=== PATIENT | male | born 1995 | race Caucasian/White ===

== ENCOUNTER 2016-12-13 03:55 | Emergency (ER) | payer OTHER ==
[~2016-12-13] VITALS: Ht 172.7 cm; Wt 61.2 kg
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
[2016-12-13] MEDS ORDERED: LIDOCAINE 2% 20 ML (XYLOCAINE) VIAL ONE (04:16)
[2016-12-13] MEDS: TETANUS,DIPTH,PERTUSS P/F (BOOSTRIX) 0.5 ML VIAL IM ONE (04:18)
[2016-12-13 04:40] VITALS: BP 138/86
[2016-12-13] MEDS ORDERED: SULF1TAB35 PO (04:47)
[2016-12-13] MEDS: RX-TRIMETH/SULFA. 160-800 MG (BACTRIM DS) TAB PPK#2 PO STA (06:46)
--- NOTE | 2016-12-13 07:40 | Diagnostic Imaging Report ---
INDICATION: Finger trauma, hand pain. COMPARISON: None. 3 views of the right hand demonstrate no fracture or dislocation. Articular surfaces are normal. There is no foreign body. IMPRESSION: Negative right hand. Dictated by: Dictated on workstation # [id number]
== END 2016-12-13 04:40 | disposition home or self-care (01) ==
LOC: EDUNIT# 03:55 → ER 03:59
DX: S61.212A Laceration without foreign body of right middle finger without damage to nail, initial encounter (principal); Z23 Encounter for immunization; W22.09XA Striking against other stationary object, initial encounter
CPT/HCPCS: 73140; 90715; 99284

== ENCOUNTER → 2017-05-28 | Outpatient (CLI) | payer OTHER ==
[~2017-05-28] MED LIST: SULF1TAB35 PO
== END ==
LOC: LAB 12:39
PROVIDERS: ATTEND Family Medicine
DX: R68.89 Other general symptoms and signs (principal)
CPT/HCPCS: 86902

== ENCOUNTER → 2017-11-03 | Outpatient (CLI) | payer OTHER ==
--- NOTE | 2017-11-03 15:33 | Diagnostic Imaging Report ---
INDICATION: Hemoptysis. PA and lateral views of the chest were obtained. FINDINGS: The heart size, mediastinal configuration, and pulmonary vascularity are within normal limits. There is no pleural effusion, pneumothorax, or pneumonia. The osseous structures are unremarkable. IMPRESSION: No acute cardiopulmonary abnormality. Dictated by: Dictated on workstation # [id number]
[2017-11-03 15:36] LABS: HEMOGLOBIN 16.2 G/DL (13.3-17.7); MEAN PLATELET VOLUME 9.7 FL (7.4-10.4); RED BLOOD COUNT 4.95 10^6/uL (4.35-5.85); WHITE BLOOD COUNT 7.8 10^3/uL (4.3-11.0)
[2017-11-03 16:03] LABS: ALANINE AMINOTRANSFERASE 16 U/L (0-55); ALBUMIN 4.4 GM/DL (3.2-4.5); ALKALINE PHOSPHATASE 51 U/L (40-136); BILIRUBIN,TOTAL 0.4 MG/DL (0.1-1.0); BUN/CREATININE RATIO 10; CALCIUM 9.5 MG/DL (8.5-10.1); CARBON DIOXIDE 30 MMOL/L (21-32); CHLORIDE 103 MMOL/L (98-107); CREATININE SERUM 0.86 MG/DL (0.60-1.30); GFR ESTIMATED > 60; GLUCOSE 82 MG/DL (70-105); POTASSIUM 3.7 MMOL/L (3.6-5.0); SODIUM 141 MMOL/L (135-145); TOTAL PROTEIN 7.1 GM/DL (6.4-8.2)
== END ==
LOC: RAD 15:16
PROVIDERS: ATTEND Physician Assistant
DX: R04.2 Hemoptysis (principal)
CPT/HCPCS: 36415; 71046; 80053; 85027; 86141

== ENCOUNTER → 2017-11-20 | Outpatient (CLI) | payer OTHER ==
[~2017-11-20] MED LIST changes: +RECEIVED CONTRAST (Hold Metformin) IV SCH
[2017-11-20 15:44] LABS: HEMOGLOBIN 15.5 G/DL (13.3-17.7); MEAN PLATELET VOLUME 9.8 FL (7.4-10.4); RED BLOOD COUNT 4.9 10^6/uL (4.35-5.85); RED CELL DISTRIBUTION WIDTH 12.2 % (10.0-14.5); WHITE BLOOD COUNT 6.4 10^3/uL (4.3-11.0)
[2017-11-20] MEDS: NS 250 ML (IVPB) BAG IV ONE (15:44)
[2017-11-20] MEDS: CATHETER FLUSH 10 ML SYR IV PRN (15:44)
[2017-11-20] MEDS: IOHEXOL 350 MG/ML 100 ML (OMNIPAQUE 350) VIAL IV ONE (15:44)
[2017-11-20 16:01] LABS: ALANINE AMINOTRANSFERASE 15 U/L (0-55); ALBUMIN 4.8 GM/DL (3.2-4.5); ALKALINE PHOSPHATASE 49 U/L (40-136); BUN/CREATININE RATIO 11; CALCIUM 9.7 MG/DL (8.5-10.1); CARBON DIOXIDE 26 MMOL/L (21-32); CHLORIDE 104 MMOL/L (98-107); CREATININE SERUM 0.96 MG/DL (0.60-1.30); GFR ESTIMATED > 60; GLUCOSE 76 MG/DL (70-105); POTASSIUM 3.8 MMOL/L (3.6-5.0); SODIUM 140 MMOL/L (135-145); TOTAL PROTEIN 7.4 GM/DL (6.4-8.2)
--- NOTE | 2017-11-20 16:20 | Diagnostic Imaging Report ---
PROCEDURE: CT chest with contrast only. TECHNIQUE: Multiple contiguous axial images were obtained through the chest after administration of intravenous contrast. INDICATION: Coughing up black sputum for a while. COMPARISON: None FINDINGS: There is no significant mediastinal, axillary and/or hilar lymphadenopathy. A few bilateral axillary lymph nodes are present. The heart size is unremarkable. Thoracic aorta normal in contour. The lung woods are clear of infiltrate. No significant pleural effusion. The visualized portions of the upper abdomen are unremarkable. The visualized osseous structures demonstrate no acute findings. IMPRESSION: Essentially unremarkable appearing CT of the chest. Dictated by: Dictated on workstation # [id number]
[2017-11-24 06:53] LABS: HEPATITIS C ANTIBODY C Non-Reactive (Non-Reactive)
== END ==
LOC: RAD 15:27
PROVIDERS: ATTEND Physician Assistant
DX: R09.3 Abnormal sputum (principal); J40 Bronchitis, not specified as acute or chronic; Z86.59 Personal history of other mental and behavioral disorders
CPT/HCPCS: 36415; 71260; 80053; 80074; 85027; 86703

== ENCOUNTER 2017-12-03 11:30 | Outpatient (CLI) | payer OTHER ==
[~2017-12-03] VITALS: Ht 172.7 cm; Wt 61.2 kg
[~2017-12-03 11:30] MED LIST changes: -RECEIVED CONTRAST (Hold Metformin) IV SCH
== END 2017-12-03 11:49 | disposition home or self-care (01) ==
LOC: PREOP 11:30
PROVIDERS: ATTEND Internal Medicine Critical Care Medicine
DX: Z01.818 Encounter for other preprocedural examination (principal)

== ENCOUNTER 2017-12-04 06:54 | Day surgery (SDC) | payer OTHER ==
[~2017-12-04] VITALS: Ht 172.7 cm; Wt 61.2 kg
[2017-12-04] MEDS ORDERED: LIDOCAINE PF 1% 5 ML SYRINGE (ANLIKER/BAILEY ONLY) INJ ONE (06:55)
[2017-12-04] MEDS ORDERED: LIDOCAINE JELLY 2% (XYLOCAINE) 30 ML TUBE TOP ONE (06:55)
[2017-12-04] MEDS ORDERED: LIDOCAINE PF 2% 5 ML (XYLOCAINE) VIAL INJ ONE (06:55)
[2017-12-04 07:05] VITALS: BP 126/84
[2017-12-04] MEDS ORDERED: NS IV 500 ML 500 ML ONE (07:06)
[2017-12-04] MEDS ORDERED: NS IV 500 ML 500 ML IV PRN (07:23)
[2017-12-04] MEDS ORDERED: fentaNYL INJECTION 100 MCG/2 ML AMP IVP ONE (07:30)
[2017-12-04] MEDS ORDERED: fentaNYL INJECTION 100 MCG/2 ML AMP ONE ×2 (07:36→07:37)
[2017-12-04] MEDS ORDERED: MIDAZOLAM 2 MG/2 ML (VERSED) VIAL ONE ×3 (07:36)
[2017-12-04] MEDS: MIDAZOLAM 2 MG/2 ML (VERSED) VIAL IVP ONE (08:01)
--- NOTE | 2017-12-04 08:39 | Pre-Op Note & Conscious Sedat ---
Pre-Operative Progress Note H&P Reviewed The H&P was reviewed, patient examined and no changes noted. Date H&P Reviewed: Dec 04, 2017 Time H&P Reviewed: 08:39 Conscious Sedation Pre-Proced Time Reviewed: 08:38 ASA Class: 2 Airway Mallampati Classification: ([place] appropriate class) I. II. III, IV Lungs Heart ASA score ASA 1: a normal healthy patient ASA 2: a patient with a mild systemic disease (mid diabetes, controlled hypertension, obesity ASA 3: a patient with a severe systemic disease that limits activity (angina , COPD, prior Myocardial infarction) ASA 4: a patient with an incapacitating disease that is a constant threat to life (CHF, renal failure) ASA 5: a moribund patient not expected to survive 24 hrs. (ruptured aneurysm) ASA 6: a declared brain patient whose organs are being harvested. For emergent operations, add the letter E after the classification Grade 1 Sedation Plan: Analgesia, Amnesia, Plan communicated to team members, Discussed options with patient/fam, Discussed risks with patient/fam Note The patient is an appropriate candidate to undergo the planned procedure, sedation, and anesthesia. The patient immediately re-assessed prior to indication. KHRIS ARBOLEDA DO Dec 04, 2017 08:39
--- NOTE | 2017-12-04 08:39 | Progress Note-Pre Operative ---
Pre-Operative Progress Note H&P Reviewed The H&P was reviewed, patient examined and no changes noted. Time Seen by Provider: 08:38 Date H&P Reviewed: Dec 04, 2017 Time H&P Reviewed: 08:38 Pre-Operative Diagnosis: cough KHRIS ARBOLEDA DO Dec 04, 2017 08:39
--- NOTE | 2017-12-04 08:42 | Pulmonary Procedures ---
Pulmonary Procedures Date of Procedure Date of Service: Dec 04, 2017 Bronch Bronchoscopy with Fluoroscopy RML bronchoalveolar lavage (BAL), transbronchial washes and, transbronchial brushes. Preop DX cough Postop DX: same Complications: none After informed consent obtained and formal time out pt was sedated using Fentanyl and Versed. Bronchoscope was advanced through the nare and vocal cords. 1% lidocaine was used to anesthetize vocal cords, epiglottis, mariah, and left/right main stem bronchus. An anatomical tour was undertaken down to the segmental bronchi bilaterally. No endobronchial lesions noted. Using Fluoroscopy RML bronchoalveolar lavage (BAL), transbronchial washes and, transbronchial brushes. were obtained. Pt tolerated procedure well. No complications noted. Stat CXR is pending. KHRIS ARBOLEDA DO Dec 04, 2017 08:42
[2017-12-04 08:55] VITALS: BP 121/78
--- NOTE | 2017-12-04 09:23 | Diagnostic Imaging Report ---
INDICATION: Status post bronchoscopy. TIME OF EXAMINATION: 08:40 a.m. COMPARISON: Correlation is made with prior study from 11/03/2017. FINDINGS: The heart size is normal. There is some consolidation in the right lower lobe. No pneumothorax is seen status post bronchoscopy. No effusion is identified. IMPRESSION: Right lower lobe pneumonia. No pneumothorax is seen. Dictated by: Dictated on workstation # [id number]
[2017-12-04 09:30] VITALS: BP 133/81
--- NOTE | 2017-12-04 11:36 | Diagnostic Imaging Report ---
Indication: Fluoroscopy during bronchoscopy. Fluoroscopy was provided for Dr. Keller during bronchoscopy. 18 seconds of fluoroscopy time was utilized. Impression: Fluoroscopy during bronchoscopy. Dictated by: Dictated on workstation # [id number]
[2017-12-04 12:51] VITALS: BP 133/81
[2017-12-04 12:53] VITALS: BP 133/81
== END 2017-12-04 09:45 | disposition home or self-care (01) ==
LOC: ENDO 06:54
PROVIDERS: ATTEND Internal Medicine Critical Care Medicine
DX: R05 Cough (principal); R09.3 Abnormal sputum; J30.9 Allergic rhinitis, unspecified; Z72.0 Tobacco use
CPT/HCPCS: 71045; 87070; 87101; 87116; 87205; 94640

== ENCOUNTER 2018-03-21 15:29 | Emergency (ER) | payer OTHER ==
[~2018-03-21] VITALS: Ht 157.5 cm; Wt 59.0 kg
--- NOTE | 2018-03-21 15:30 | NUR ---
Pt. is A&O x 3. Denies loss of consciousness, pupils are PEARRL. Denies neck pain upon palpation. Denies chest pain or shortness of breath, lung sounds are clear and equal bilaterally, no deformities or crepitus noted. Complains of left lower quadrant abdominal pain as well as right upper quadrant abdominal pain. Pt. advises pain in the left and right buttocks region as well as pelvis and groin upon palpation. Pelvic binder applied at 1540 He complains of left leg pain. Abraision to the right upper extremity no obivious bleeding noted. Pt. is able to move all upper and lower extremitites with normal sensation of pain to all extremities. He advises back pain in the lumbar region.
[2018-03-21] MEDS ORDERED: fentaNYL INJECTION 100 MCG/2 ML AMP ONE ×2 (15:35→16:24)
[2018-03-21] MEDS ORDERED: ONDANSETRON 4 MG/2 ML (SDV) Z0FRAN ONE (16:24)
--- NOTE | 2018-03-21 16:24 | NUR ---
[facility] notified of possible pending transfer.
--- NOTE | 2018-03-21 16:28 | Diagnostic Imaging Report ---
INDICATION: Trauma, chest pain. FINDINGS: A single view of the chest shows normal heart size and vascularity. The lungs are clear. There is no effusion or pneumothorax. There is no acute bony abnormality. IMPRESSION: No acute abnormality is seen. Dictated by: Dictated on workstation # [id number]
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
[2018-03-21] MEDS ORDERED: ONDANSETRON 4 MG/2 ML (SDV) Z0FRAN IVP ONE (16:30)
[2018-03-21] MEDS ORDERED: fentaNYL INJECTION 100 MCG/2 ML AMP IVP PRN (16:30)
--- NOTE | 2018-03-21 16:35 | Diagnostic Imaging Report ---
EXAMINATION: Pelvis, single view. COMPARISON: November 02, 2011. FINDINGS: The patient is rotated. There is a mildly displaced fracture of the left anterior acetabulum. The hips are not obviously dislocated. The sacroiliac joints are grossly unremarkable in alignment. There is no abnormal widening of the pubic symphysis. There is a comminuted displaced fracture of the left inferior pubic ramus. There is question of a right sacral fracture. IMPRESSION: 1. Mildly displaced fracture involving the left anterior acetabulum. 2. Comminuted displaced fracture of the left inferior pubic ramus. 3. Question of right sacral fracture. 4. Dedicated CT is recommended for further assessment of pelvic fractures. Dictated by: Dictated on workstation # [id number]
[2018-03-21 16:43] LABS: HEMOGLOBIN 15.7 G/DL (13.3-17.7); MEAN PLATELET VOLUME 10.6 FL (7.4-10.4); RED BLOOD COUNT 4.98 10^6/uL (4.35-5.85); WHITE BLOOD COUNT 6.2 10^3/uL (4.3-11.0)
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
[2018-03-21] MEDS: NS IV 1000 ML 1,000 ML IV SCH ×2 (16:58→16:59)
[2018-03-21 16:59] LABS: ALANINE AMINOTRANSFERASE 24 U/L (0-55); ALBUMIN 4.7 GM/DL (3.2-4.5); ALKALINE PHOSPHATASE 51 U/L (40-136); BILIRUBIN,DIRECT 0.3 MG/DL (0.0-0.3); BILIRUBIN,INDIRECT 0.4 MG/DL; BILIRUBIN,TOTAL 0.7 MG/DL (0.1-1.0); BUN/CREATININE RATIO 6; CALCIUM 9.3 MG/DL (8.5-10.1); CARBON DIOXIDE 23 MMOL/L (21-32); CHLORIDE 105 MMOL/L (98-107); CREATINE KINASE 165 U/L (30-200); CREATININE SERUM 1.08 MG/DL (0.60-1.30); GFR ESTIMATED > 60; GLUCOSE 122 MG/DL (70-105); MAGNESIUM 2.3 MG/DL (1.8-2.4); PHOSPHORUS 2.6 MG/DL (2.3-4.7); POTASSIUM 3.3 MMOL/L (3.6-5.0); SODIUM 142 MMOL/L (135-145); TOTAL PROTEIN 7.3 GM/DL (6.4-8.2)
[2018-03-21 17:00] LABS: FIBRIN DEGRADATION PRODUCTS 4.5 UG/ML (0.00-0.49); INR 1.1 (0.8-1.4); PROTHROMBIN TIME PATIENT 14.2 SEC (12.2-14.7)
--- NOTE | 2018-03-21 17:08 | NUR ---
[facility] notified of pending transfer, bed [id number]
--- NOTE | 2018-03-21 17:14 | NUR ---
Patient report called to Kenneth DENNIS at [facility].
[2018-03-21] MEDS ORDERED: fentaNYL INJECTION 100 MCG/2 ML AMP IVP STA (17:41)
[2018-03-21 18:00] VITALS: BP 122/82
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
== END 2018-03-21 18:00 ==
LOC: EDUNIT# 15:29 → ER 15:29
DX: S32.412A Displaced fracture of anterior wall of left acetabulum, initial encounter for closed fracture (principal); S32.502A Unspecified fracture of left pubis, initial encounter for closed fracture; S32.302A Unspecified fracture of left ilium, initial encounter for closed fracture; S32.10XA Unspecified fracture of sacrum, initial encounter for closed fracture; R07.9 Chest pain, unspecified; F12.10 Cannabis abuse, uncomplicated; R40.2142 Coma scale, eyes open, spontaneous, at arrival to emergency department; R40.2252 Coma scale, best verbal response, oriented, at arrival to emergency department; R40.2362 Coma scale, best motor response, obeys commands, at arrival to emergency department; F17.210 Nicotine dependence, cigarettes, uncomplicated; Z88.0 Allergy status to penicillin; V67.6XXA Passenger in heavy transport vehicle injured in collision with fixed or stationary object in traffic accident, initial encounter
CPT/HCPCS: 36415; 71045; 72170; 74177; 80048; 80076; 80320; 82550; 83735; 84100; 84484; 85027; 85379; 85384; 85610; 85730; 86850; 86900; 86901; 86920; 96361; 96374; 96375; 96376

== ENCOUNTER → 2018-11-30 | Outpatient (CLI) | payer OTHER ==
--- NOTE | 2018-11-30 17:20 | Diagnostic Imaging Report ---
INDICATION: Fall with right shoulder pain and injury. TIME OF EXAM: 5:01 PM FINDINGS: Three views of the right shoulder were obtained. Glenohumeral and acromioclavicular alignment are normal. No fracture or dislocation is seen. IMPRESSION: No acute bony abnormality is detected. Dictated by: Dictated on workstation # [id number]
--- NOTE | 2018-11-30 17:34 | Diagnostic Imaging Report ---
INDICATION: Fall with right hip pain. TIME OF EXAM: 5:06 p.m. FINDINGS: Two views of the right hip demonstrate normal femoroacetabular alignment. The joint spaces are well maintained. The femoral head and neck are intact. No fractures are seen. Right-sided rami are intact. There are postop changes with screws transfixing the right SI joint and sacrum. IMPRESSION: No acute bony abnormality is detected. Dictated by: Dictated on workstation # [id number]
== END ==
LOC: RAD 16:42
PROVIDERS: ATTEND Nurse Practitioner
DX: S49.91XA Unspecified injury of right shoulder and upper arm, initial encounter (principal); M25.551 Pain in right hip; W19.XXXA Unspecified fall, initial encounter; Y92.009 Unspecified place in unspecified non-institutional (private) residence as the place of occurrence of the external cause
CPT/HCPCS: 73030; 73502

== ENCOUNTER 2019-08-29 11:39 | Outpatient (RCR) | payer OTHER ==
[2019-08-29 16:38] LABS: BASOPHILS # (AUTO) 0.1 10^3/uL (0.0-0.1); BASOPHILS % (AUTO) 1 % (0-10); EOSINOPHILS # (AUTO) 0.2 10^3/uL (0.0-0.3); EOSINOPHILS % (AUTO) 3 % (0-10); HEMATOCRIT 46 % (40-54); LYMPHOCYTES # (AUTO) 2.2 X 10^3 (1.0-4.0); LYMPHOCYTES % (AUTO) 31 % (12-44); MEAN CORPUSCULAR HEMOGLOBIN 32 PG (25-34); MEAN CORPUSCULAR HGB CONC 35 G/DL (32-36); MEAN CORPUSCULAR VOLUME 91 FL (80-99); MEAN PLATELET VOLUME 9.7 FL (7.4-10.4); MONOCYTES # (AUTO) 0.7 X 10^3 (0.0-1.0); MONOCYTES % (AUTO) 10 % (0-12); NEUTROPHILS % (AUTO) 56 % (42-75); PLATELET COUNT 259 10^3/uL (130-400); WHITE BLOOD COUNT 7.2 10^3/uL (4.3-11.0)
[2019-08-29 16:39] LABS: BILIRUBIN,URINE NEGATIVE (NEGATIVE); CLARITY,URINE CLEAR; COLOR,URINE YELLOW; GLUCOSE, URINE (UA) NEGATIVE (NEGATIVE); KETONES,URINE NEGATIVE (NEGATIVE); LEUKOCYTE ESTERASE ,URINE NEGATIVE (NEGATIVE); NITRITE,URINE NEGATIVE (NEGATIVE); PH,URINE 6.5 (5-9); PROTEIN,URINE NEGATIVE (NEGATIVE)
[2019-08-29 16:51] LABS: ALBUMIN 4.5 GM/DL (3.2-4.5)
[2019-08-29 16:52] LABS: CHLORIDE 105 MMOL/L (98-107); POTASSIUM 3.3 MMOL/L (3.6-5.0); SODIUM 141 MMOL/L (135-145)
[2019-08-29 16:53] LABS: CALCIUM 9.3 MG/DL (8.5-10.1)
[2019-08-29 16:54] LABS: GLUCOSE 107 MG/DL (70-105); TOTAL PROTEIN 7.4 GM/DL (6.4-8.2)
[2019-08-29 16:55] LABS: CARBON DIOXIDE 25 MMOL/L (21-32)
[2019-08-29 16:56] LABS: BILIRUBIN,TOTAL 0.8 MG/DL (0.1-1.0)
[2019-08-29 16:57] LABS: ALKALINE PHOSPHATASE 57 U/L (40-136); CREATININE SERUM 0.99 MG/DL (0.60-1.30); GFR ESTIMATED > 60
[2019-08-29 16:59] LABS: BUN/CREATININE RATIO 9
[2019-08-29 17:00] LABS: ALANINE AMINOTRANSFERASE 13 U/L (0-55)
[2019-08-29 17:03] LABS: AMORPHOUS SEDIMENT,UR FEW AMOR URATES /LPF; BACTERIA,URINE NEGATIVE /HPF
== END 2019-11-27 | disposition home or self-care (01) ==
LOC: LAB 11:39 → EDSTATUS 08-30 09:50
PROVIDERS: ATTEND Physician Assistant
DX: R55 Syncope and collapse (principal); R11.0 Nausea; R53.83 Other fatigue; Z20.828 Contact with and (suspected) exposure to other viral communicable diseases
CPT/HCPCS: 80053; 81000; 85025; U0002; 36415; 87635

== ENCOUNTER 2019-11-22 08:14 | Outpatient (RCR) | payer OTHER ==
[2019-10-31 09:00] VITALS: BP 115/71
[2019-10-31 09:41] LABS: BASOPHILS # (AUTO) 0.1 10^3/uL (0.0-0.1); BASOPHILS % (AUTO) 1 % (0-10); EOSINOPHILS # (AUTO) 0.3 10^3/uL (0.0-0.3); EOSINOPHILS % (AUTO) 5 % (0-10); HEMATOCRIT 42 % (40-54); HEMOGLOBIN 14.4 G/DL (13.3-17.7); LYMPHOCYTES # (AUTO) 1.8 X 10^3 (1.0-4.0); LYMPHOCYTES % (AUTO) 35 % (12-44); MEAN CORPUSCULAR HEMOGLOBIN 32 PG (25-34); MEAN CORPUSCULAR HGB CONC 34 G/DL (32-36); MEAN CORPUSCULAR VOLUME 92 FL (80-99); MEAN PLATELET VOLUME 9.9 FL (7.4-10.4); MONOCYTES # (AUTO) 0.6 X 10^3 (0.0-1.0); MONOCYTES % (AUTO) 11 % (0-12); NEUTROPHILS # (AUTO) 2.4 X 10^3 (1.8-7.8); NEUTROPHILS % (AUTO) 47 % (42-75); PLATELET COUNT 222 10^3/uL (130-400); RED CELL DISTRIBUTION WIDTH 11.8 % (10.0-14.5); WHITE BLOOD COUNT 5.2 10^3/uL (4.3-11.0)
[2019-10-31 09:51] LABS: ALBUMIN 4.1 GM/DL (3.2-4.5); CHLORIDE 107 MMOL/L (98-107); POTASSIUM 3.8 MMOL/L (3.6-5.0); SODIUM 139 MMOL/L (135-145)
[2019-10-31 09:53] LABS: CALCIUM 8.6 MG/DL (8.5-10.1)
[2019-10-31 09:54] LABS: GLUCOSE 95 MG/DL (70-105); TOTAL PROTEIN 6.8 GM/DL (6.4-8.2)
[2019-10-31 09:55] LABS: CARBON DIOXIDE 23 MMOL/L (21-32)
[2019-10-31 09:56] LABS: BILIRUBIN,TOTAL 0.3 MG/DL (0.1-1.0)
[2019-10-31 09:57] LABS: ALKALINE PHOSPHATASE 56 U/L (40-136); CREATININE SERUM 0.81 MG/DL (0.60-1.30); GFR ESTIMATED > 60
[2019-10-31 09:59] LABS: BUN/CREATININE RATIO 11
[2019-10-31 10:00] LABS: ALANINE AMINOTRANSFERASE 15 U/L (0-55)
[2019-10-31 10:21] LABS: BAND NEUTROPHILS 6 %; BASOPHILS % (MANUAL) 0 %; EOSINOPHILS % (MANUAL) 3 %; LYMPHOCYTES % (MANUAL) 30 %; MONOCYTES % (MANUAL) 7 %; NEUTROPHILS % (MANUAL) 54 %; RBC MORPH NORMAL
[2019-11-07 08:30] VITALS: BP 115/66
[2019-11-07 09:30] LABS: BASOPHILS # (AUTO) 0.1 10^3/uL (0.0-0.1); BASOPHILS % (AUTO) 2 % (0-10); EOSINOPHILS # (AUTO) 0.3 10^3/uL (0.0-0.3); EOSINOPHILS % (AUTO) 5 % (0-10); HEMATOCRIT 42 % (40-54); HEMOGLOBIN 14.6 G/DL (13.3-17.7); LYMPHOCYTES # (AUTO) 2.1 X 10^3 (1.0-4.0); LYMPHOCYTES % (AUTO) 35 % (12-44); MEAN CORPUSCULAR HEMOGLOBIN 32 PG (25-34); MEAN CORPUSCULAR HGB CONC 35 G/DL (32-36); MEAN CORPUSCULAR VOLUME 93 FL (80-99); MONOCYTES # (AUTO) 0.5 X 10^3 (0.0-1.0); MONOCYTES % (AUTO) 9 % (0-12); NEUTROPHILS % (AUTO) 50 % (42-75); PLATELET COUNT 242 10^3/uL (130-400); RED CELL DISTRIBUTION WIDTH 11.7 % (10.0-14.5)
[2019-11-07 09:48] LABS: ALANINE AMINOTRANSFERASE 20 U/L (0-55); ALKALINE PHOSPHATASE 53 U/L (40-136); BILIRUBIN,TOTAL 0.3 MG/DL (0.1-1.0); BUN/CREATININE RATIO 10; CARBON DIOXIDE 28 MMOL/L (21-32); CHLORIDE 107 MMOL/L (98-107); CREATININE SERUM 0.88 MG/DL (0.60-1.30); GFR ESTIMATED > 60; GLUCOSE 97 MG/DL (70-105); POTASSIUM 3.7 MMOL/L (3.6-5.0); SODIUM 142 MMOL/L (135-145); TOTAL PROTEIN 6.4 GM/DL (6.4-8.2)
[2019-11-07 09:54] LABS: VANCOMYCIN,TROUGH 10.9 UG/ML (10.0-20.0)
[2019-11-14 08:58] VITALS: BP 108/71
[2019-11-14 09:07] LABS: BASOPHILS # (AUTO) 0.1 10^3/uL (0.0-0.1); BASOPHILS % (AUTO) 2 % (0-10); EOSINOPHILS # (AUTO) 0.2 10^3/uL (0.0-0.3); EOSINOPHILS % (AUTO) 6 % (0-10); HEMATOCRIT 43 % (40-54); HEMOGLOBIN 14.8 G/DL (13.3-17.7); LYMPHOCYTES % (AUTO) 46 % (12-44); MEAN CORPUSCULAR HEMOGLOBIN 32 PG (25-34); MEAN CORPUSCULAR HGB CONC 35 G/DL (32-36); MEAN CORPUSCULAR VOLUME 91 FL (80-99); MEAN PLATELET VOLUME 10.2 FL (7.4-10.4); MONOCYTES # (AUTO) 0.6 X 10^3 (0.0-1.0); MONOCYTES % (AUTO) 14 % (0-12); NEUTROPHILS # (AUTO) 1.4 X 10^3 (1.8-7.8); NEUTROPHILS % (AUTO) 33 % (42-75); PLATELET COUNT 229 10^3/uL (130-400); RED CELL DISTRIBUTION WIDTH 11.5 % (10.0-14.5); WHITE BLOOD COUNT 4.3 10^3/uL (4.3-11.0)
[2019-11-14 09:37] LABS: ALANINE AMINOTRANSFERASE 17 U/L (0-55); ALBUMIN 4.3 GM/DL (3.2-4.5); ALKALINE PHOSPHATASE 62 U/L (40-136); BILIRUBIN,TOTAL 0.4 MG/DL (0.1-1.0); BUN/CREATININE RATIO 14; CARBON DIOXIDE 24 MMOL/L (21-32); CHLORIDE 106 MMOL/L (98-107); CREATININE SERUM 0.83 MG/DL (0.60-1.30); GFR ESTIMATED > 60; GLUCOSE 99 MG/DL (70-105); POTASSIUM 3.9 MMOL/L (3.6-5.0); SODIUM 141 MMOL/L (135-145); VANCOMYCIN,TROUGH 14.5 UG/ML (10.0-20.0)
--- NOTE | 2019-11-14 10:15 | NUR ---
LAB RESULTS FAXED TO [facility].
[2019-11-21 08:30] VITALS: BP 113/71
[2019-11-21 09:00] LABS: BASOPHILS # (AUTO) 0.1 10^3/uL (0.0-0.1); BASOPHILS % (AUTO) 2 % (0-10); EOSINOPHILS # (AUTO) 0.3 10^3/uL (0.0-0.3); EOSINOPHILS % (AUTO) 7 % (0-10); HEMATOCRIT 43 % (40-54); HEMOGLOBIN 15.1 G/DL (13.3-17.7); LYMPHOCYTES % (AUTO) 49 % (12-44); MEAN CORPUSCULAR HEMOGLOBIN 32 PG (25-34); MEAN CORPUSCULAR HGB CONC 35 G/DL (32-36); MEAN CORPUSCULAR VOLUME 91 FL (80-99); MEAN PLATELET VOLUME 9.6 FL (7.4-10.4); MONOCYTES # (AUTO) 0.7 X 10^3 (0.0-1.0); MONOCYTES % (AUTO) 16 % (0-12); NEUTROPHILS % (AUTO) 26 % (42-75); PLATELET COUNT 234 10^3/uL (130-400); RED CELL DISTRIBUTION WIDTH 11.8 % (10.0-14.5); WHITE BLOOD COUNT 4.1 10^3/uL (4.3-11.0)
[2019-11-21 09:02] LABS: ALBUMIN 4.1 GM/DL (3.2-4.5); CHLORIDE 107 MMOL/L (98-107); POTASSIUM 3.6 MMOL/L (3.6-5.0); SODIUM 141 MMOL/L (135-145)
[2019-11-21 09:03] LABS: CALCIUM 8.8 MG/DL (8.5-10.1)
[2019-11-21 09:04] LABS: GLUCOSE 92 MG/DL (70-105)
[2019-11-21 09:05] LABS: TOTAL PROTEIN 6.6 GM/DL (6.4-8.2)
[2019-11-21 09:06] LABS: BILIRUBIN,TOTAL 0.4 MG/DL (0.1-1.0); CARBON DIOXIDE 24 MMOL/L (21-32)
[2019-11-21 09:08] LABS: ALKALINE PHOSPHATASE 53 U/L (40-136); CREATININE SERUM 0.81 MG/DL (0.60-1.30); GFR ESTIMATED > 60
[2019-11-21 09:09] LABS: BUN/CREATININE RATIO 11
[2019-11-21 09:11] LABS: ALANINE AMINOTRANSFERASE 14 U/L (0-55)
[2019-11-21 09:17] LABS: VANCOMYCIN,TROUGH 12.4 UG/ML (10.0-20.0)
[2019-11-22 08:20] VITALS: BP 116/74
== END 2019-11-22 08:25 | disposition home or self-care (01) ==
LOC: SDC 08:14
PROVIDERS: ATTEND Nurse Practitioner
DX: Z45.2 Encounter for adjustment and management of vascular access device (principal)
CPT/HCPCS: 80053; 80202; 85007; 85027; 86141; G0463; 36415; 36591; 85025; 99211

== ENCOUNTER → 2019-12-14 | Emergency (ER) | payer OTHER ==
[~2019-12-14] VITALS: Ht 172.7 cm; Wt 62.2 kg
[~2019-12-14] MED LIST changes: +CEPH500T PO; +CEPHALEXIN 250 MG (KEFLEX) CAP PO STA; +LIDOCAINE 1% INJ 20 ML 20 ML VIAL INJ ONE; +RX-TRAMADOL 50 MG (ULTRAM) TAB PPK#4 PO STA
--- NOTE | 2019-12-14 18:23 | ED Upper Extremity ---
General Chief Complaint: Laceration Stated Complaint: LACERATION TO POINTER FINGER ON R HAND Nursing Triage Note: PT AMBULATE TO ROOM 07 WITH C/O LAC TO RIGHT INDEX FINGER. PT STATES HE PICKED UP A BAG AND WAS UNAWARE OF THE BROKEN GLASS INSIDE OF IT. Nursing Sepsis Screen: No Definite Risk History of Present Illness Date Seen by Provider: Dec 14, 2019 Time Seen by Provider: 17:55 Initial Comments 24-year-old male presents for a laceration to his index finger on his right hand. He was reaching into the trash and is unsure what he grabbed but he believes it was glass that caused a laceration. He has significant injury to the volar aspect of the index finger extending from the middle phalanx to the distal phalanx. He is right-hand dominant, denies any previous history of injuries to his right hand. He has full flexion and extension of the right index finger. Last tetanus was within 5 years. Onset: just prior to arrival Pain/Injury Location: right 2nd finger Method of Injury: unknown, incised Allergies and Home Medications Allergies Coded Allergies: amoxicillin (Verified Allergy, Unknown, RASH, 12/03/17) Home Medications Cephalexin 500 Mg Tablet, 500 MG PO TID Prescribed by: BRYAN LUNA on 12/14/191918 Patient Home Medication List Home Medication List Reviewed: Yes Review of Systems Constitutional: no symptoms reported, see HPI Musculoskeletal: no symptoms reported, see HPI; No joint pain Skin: see HPI, other (laceration right index finger) All Other Systems Reviewed Negative Unless Noted: Yes Past Oxpauke-Hcvwum-Tamlhc Hx Past Med/Social Hx: Reviewed Nursing Past Med/Soc Hx Patient Social History Alcohol Use: Denies Use Recreational Drug Use: Yes Drug of Choice: THC Smoking Status: Light Tobacco Smoker Type Used: Cigarettes 2nd Hand Smoke Exposure: Yes Recent Foreign Travel: No Contact w/Someone Who Travel: No Recent Infectious Disease Expo: No Recent Hopitalizations: No Physical Abuse: No Sexual Abuse: No Mistreated: No Fear: No Immunizations Up To Date Tetanus Booster (TDap): Unknown Seasonal Allergies Seasonal Allergies: No Past Medical History Surgeries: Yes (RIGHT FEMUR FX/ORIF-NATALIE PLACEMENT) Orthopedic Respiratory: Yes (cough, abnormal sputum) Cardiac: No Neurological: No Reproductive Disorders: No Genitourinary: No Gastrointestinal: No Musculoskeletal: Yes (RIGHT FEMUR FX/ORIF-NATALIE) Endocrine: No HEENT: No Cancer: No Psychosocial: No Integumentary: No Blood Disorders: No Physical Exam Vital Signs Vital Signs - First Documented 12/14/19 17:52 Temp 36.3 Pulse 91 Resp 18 B/P (MAP) 129/84 (99) O2 Delivery Room Air Capillary Refill : Less Than 3 Seconds Height, Weight, BMI Height: 5'2.00" Weight: 130lbs. 0.0oz. 58.789417me; 20.00 BMI Method:Stated General Appearance: WD/WN, no apparent distress Cardiovascular: normal peripheral pulses, regular rate, rhythm Respiratory: chest non-tender, lungs clear Gastrointestinal: normal bowel sounds, non tender, soft Hand: normal ROM (resisted flex/ext at MCP, PIP and DIP V/V index finger. No tendon injury noted on wound exploration. ), Right, laceration (8 cm flap laceration to volar surface of the index finger right hand, no active bleeding.), soft tissue tenderness Neurologic/Tendon: normal sensation, normal motor functions, normal tendon functions Neurologic/Psychiatric: no motor/sensory deficits, alert, normal mood/affect, oriented x 3 Skin: normal color, warm/dry Lymphatic: no adenopathy Procedures/Interventions Wound Location: Upper Extremities (right index finger) Wound's Depth, Shape: into muscle, flap Wound Explored: clean Irrigated w/ Saline (ccs): 1000 Betadine Prep?: Yes Anesthesia: 1% Lidocaine Volume Anesthetic (ccs): 5 Suture Size: 4-0 Number of Sutures: 15 Sterile Dressing Applied?: Yes Progress Wound well approximated, patient tolerated procedure well. Bulky sterile dress ing applied. Progress/Results/Core Measures Results/Orders My Orders Orders - BRYAN LUNA Finger(S) (12/14/19 18:01) Lidocaine 1% Inj 20 Ml (Xylocaine 1% Inj (12/14/19 18:30) Cephalexin Capsule (Keflex Capsule) (12/14/19 19:15) Rx-Tramadol Hcl (Rx-Ultram) (12/14/19 19:15) Medications Given in ED Current Medications Medications Dose Ordered Sig/Melita Route Start Time Stop Time Status Last Admin Dose Admin Lidocaine HCl 20 ml ONCE ONCE INJ 12/14/19 18:30 12/14/19 18:31 DC 12/14/19 18:48 20 ML Vital Signs/I&O 12/14/19 17:52 Temp 36.3 Pulse 91 Resp 18 B/P (MAP) 129/84 (99) O2 Delivery Room Air Blood Pressure Mean: 99 Progress Progress Note : Time: 17:55 Progress Note Patient seen and evaluated, will obtain x-ray of the right hand and them plan suture. 1855 X-ray findings show a nondisplaced distal fifth metacarpal fracture with early calus formation, the patient is nontender over this area and does not remember an injury to his right hand. Full ROM to 5th finger, A Velcro soft padded splint applied for this fracture. Patient encouraged to follow-up with orthopedics. Discharge instructions and wound care explained to the patient. All questions answered. Diagnostic Imaging Diagonstic Imaging: Xray Comments NAME: [facility] REC#: [id number] PT STATUS: REG ER : 1995 PHYSICIAN: BRYAN LUNA ADMIT DATE: 12/14/19/ER Signed Date of Exam:12/14/19 FINGER(S) HISTORY: Right second digit laceration. TECHNIQUE: Frontal view of the right hand. Oblique and lateral views of the right index finger. COMPARISON: 12/13/2016 FINDINGS: There is a healing, mildly comminuted, anteriorly angulated fracture through the right fifth metacarpal neck. There appears to be a soft tissue defect at the volar aspect of the right index finger. No radiopaque foreign body is seen. No acute osseous abnormality is seen in the right index finger. Alignment appears normal. IMPRESSION: 1. Soft tissue laceration of the right index finger with no acute osseous abnormality or radiopaque foreign body is seen. 2. Healing angulated fracture of the right fifth metacarpal neck. Dictated by: Dictated on workstation # [id number] Dict: 12/14/191826 Trans: 12/14/191839 [facility] [id number] Interpreted by: PATRICE HALLMAN MD Electronically signed by: PATRICE HALLMAN MD 12/14/191839 Reviewed: Reviewed by Me Departure Impression Primary Impression: Laceration of right index finger Qualified Codes: S61.210A - Laceration without foreign body of right index finger without damage to nail, initial encounter Additional Impression: Fracture of fifth metacarpal bone of right hand Qualified Codes: S62.366A - Nondisplaced fracture of neck of fifth metacarpal bone, right hand, initial encounter for closed fracture Disposition: 01 HOME, SELF-CARE Condition: Improved Departure-Patient Inst. Decision time for Depature: 18:45 Referrals: MALLORY MESSER MD (PCP/Family) Primary Care Physician ANKUSH DOCKERY MD Patient Instructions: Laceration Repair With Stitches (DC), Finger Fracture (DC) Add. Discharge Instructions: Keep the dressing dry and in place for 24 hours, you may re-inforce if needed. Do not submerge the wound in standing water (tub, pool, sink, obrien, etc). Take antibiotics as prescribed Follow up with Orthopedics for fracture in 5th metacarpal. Use tramadol for severe pain, otherwise she may alternate between Tylenol 650 mg and ibuprofen 600 mg every 4 hours. Leave sutures in place, return to Emergency Dept or your Primary Care Provider in 10 days for removal. You may shower, do not have water hit directly over wound. Clean with peroxide after shower, leave open to air when at home, cover with dressing or band-aid when out of the house. Watch for signs of infection: Redness, increased tenderness, warmth, discolored drainage or foul smelling drainage. Return to the emergency department for new, urgent health care problems. All discharge instructions reviewed with patient and/or family. Voiced understa nding. Scripts Cephalexin (Cephalexin) 500 Mg Tablet 500 MG PO TID, #15 TAB 0 Refills Prov: BRYAN LUNA 12/14/19 Copy Copies To 1: MALLORY MESSER MD; ANKUSH DOCKERY MD, AMY ARNP Dec 14, 2019 18:23
--- NOTE | 2019-12-14 18:39 | Diagnostic Imaging Report ---
HISTORY: Right second digit laceration. TECHNIQUE: Frontal view of the right hand. Oblique and lateral views of the right index finger. COMPARISON: 12/13/2016 FINDINGS: There is a healing, mildly comminuted, anteriorly angulated fracture through the right fifth metacarpal neck. There appears to be a soft tissue defect at the volar aspect of the right index finger. No radiopaque foreign body is seen. No acute osseous abnormality is seen in the right index finger. Alignment appears normal. IMPRESSION: 1. Soft tissue laceration of the right index finger with no acute osseous abnormality or radiopaque foreign body is seen. 2. Healing angulated fracture of the right fifth metacarpal neck. Dictated by: Dictated on workstation # [id number]
[2019-12-14 19:31] VITALS: BP 118/73
== END | disposition home or self-care (01) ==
LOC: EDUNIT# 17:45 → ER 17:47
DX: S62.366A Nondisplaced fracture of neck of fifth metacarpal bone, right hand, initial encounter for closed fracture (principal); S61.210A Laceration without foreign body of right index finger without damage to nail, initial encounter; F17.210 Nicotine dependence, cigarettes, uncomplicated; Z88.0 Allergy status to penicillin; W25.XXXA Contact with sharp glass, initial encounter
CPT/HCPCS: 12032; 73140

== ENCOUNTER 2019-12-24 13:40 | Emergency (ER) | payer OTHER ==
[~2019-12-24] VITALS: Ht 172.7 cm; Wt 61.2 kg
[~2019-12-24 13:40] MED LIST changes: -CEPHALEXIN 250 MG (KEFLEX) CAP PO STA; -LIDOCAINE 1% INJ 20 ML 20 ML VIAL INJ ONE; -RX-TRAMADOL 50 MG (ULTRAM) TAB PPK#4 PO STA
[2019-12-24 13:44] VITALS: BP 119/81
== END 2019-12-24 13:57 | disposition home or self-care (01) ==
LOC: EDUNIT# 13:40 → ER 13:41
DX: S61.210D Laceration without foreign body of right index finger without damage to nail, subsequent encounter (principal); X58.XXXD Exposure to other specified factors, subsequent encounter

== ENCOUNTER → 2020-02-08 | Outpatient (CLI) | payer OTHER | LOC: LABNPT 08:43 | PROVIDERS: ATTEND Internal Medicine | DX: R51.9 Headache, unspecified (principal); R11.0 Nausea; R19.7 Diarrhea, unspecified; Z20.828 Contact with and (suspected) exposure to other viral communicable diseases | CPT/HCPCS: 87635 ==

== ENCOUNTER 2022-08-16 19:24 | Emergency (ER) | payer SELFPAY ==
[~2022-08-16] VITALS: Ht 175.3 cm; Wt 64.9 kg
[~2022-08-16 19:24] MED LIST changes: -SULF1TAB35 PO; +SULF1TAB38 PO
[2022-08-16 19:41] LABS: BASOPHILS # (AUTO) 0.1 10^3/uL (0.0-0.1); BASOPHILS % (AUTO) 1 % (0-10); EOSINOPHILS # (AUTO) 0.1 10^3/uL (0.0-0.3); EOSINOPHILS % (AUTO) 1 % (0-10); HEMATOCRIT 47 % (40-54); HEMOGLOBIN 16.2 g/dL (13.3-17.7); LYMPHOCYTES # (AUTO) 0.7 10^3/uL (1.0-4.0); LYMPHOCYTES % (AUTO) 7 % (12-44); MEAN CORPUSCULAR HEMOGLOBIN 32 pg (25-34); MEAN CORPUSCULAR HGB CONC 34 g/dL (32-36); MEAN CORPUSCULAR VOLUME 94 fL (80-99); MEAN PLATELET VOLUME 9.1 fL (9.0-12.2); MONOCYTES # (AUTO) 0.6 10^3/uL (0.0-1.0); MONOCYTES % (AUTO) 6 % (0-12); NEUTROPHILS # (AUTO) 7.8 10^3/uL (1.8-7.8); NEUTROPHILS % (AUTO) 85 % (42-75); PLATELET COUNT 267 10^3/uL (130-400); WHITE BLOOD COUNT 9.2 10^3/uL (4.3-11.0)
[2022-08-16] MEDS ORDERED: NS 100 ML (IVPB) BAG IV ONE (19:45)
[2022-08-16] MEDS ORDERED: ONDANSETRON 4 MG/2 ML (SDV) Z0FRAN IVP ONE (19:45)
[2022-08-16] MEDS ORDERED: IOHEXOL 350 MG/ML 100 ML (OMNIPAQUE 350) VIAL IV ONE (19:45)
[2022-08-16] MEDS ORDERED: NS IV 1000 ML 1,000 ML IV SCH (19:45)
[2022-08-16] MEDS ORDERED: HOLD METFORMIN - RECEIVED CONTRAST 20 ML VIAL IV SCH (19:45)
[2022-08-16] MEDS ORDERED: fentaNYL INJ 100 MCG/2 ML AMP IVP ONE (19:45)
--- NOTE | 2022-08-16 19:45 | ED Abdominal Pain ---
General Chief Complaint: Abdominal/GI Problems Stated Complaint: RIGHT SIDE PAIN Nursing Triage Note: PT AMBULATE TO ROOM 03 WITHOUT DIFFICULTY WITH C/O RIGHT LOWER ABD PAIN X3 DAYS. PT DENIES TAKING ANYTHING FOR PAIN. PT REPORTS BEING SENT FROM [facility] TODAY. Source of Information: Patient, Other ([facility] provider) Exam Limitations: No Limitations History of Present Illness Date Seen by Provider: August 16, 2022 Time Seen by Provider: 19:26 Initial Comments 27-year-old male presents to the ER with complaints of 3 days of right-sided abdominal pain that radiates to his right flank. He denies known fever, but states he feels cold and shaky. He was found to have a fever here. He reports nausea, no vomiting. Denies diarrhea. Denies dysuria and hematuria. Last bowel movement was yesterday. Denies any pertinent medical history. Does not taking medications regularly. Has not had any abdominal surgeries. He has had an orthopedic surgery on his pelvis. Allergies and Home Medications Allergies Coded Allergies: amoxicillin (Verified Allergy, Unknown, RASH, 12/03/17) Patient Home Medication List Home Medication List Reviewed: Yes Cephalexin (Cephalexin) 500 Mg Tablet, 500 MG PO TID Prescribed by: BRYAN LUNA on 12/14/191918 Ondansetron (Ondansetron Odt) 4 Mg Tab.rapdis, 4 MG SL Q4H PRN for NAUSEA/VOMITING Prescribed by: Zena Meyer on 08/16/222048 Review of Systems Review of Systems Constitutional: see HPI Past Lmzkcgg-Vjiatr-Tliwjl Hx Patient Social History Tobacco Use?: Yes Tobacco type used: Cigarettes Smoking Status: Heavy Tobacco Smoker Smokeless Tobacco Frequency: Never a User Use of E-Cig and/or Vaping dev: No Use of E-Cig and/or Vaping Mat: Never a User Substance use?: Yes Substance type: Marijuana Substance frequency: Daily Alcohol Use?: Yes Alcohol Frequency: Daily Pt feels they are or have been: No Immunizations Up To Date Tetanus Booster (TDap): Unknown Seasonal Allergies Seasonal Allergies: No Past Medical History Surgeries: Yes (RIGHT FEMUR FX/ORIF-NATALIE PLACEMENT) Orthopedic Respiratory: Yes (cough, abnormal sputum) Cardiac: No Neurological: No Reproductive Disorders: No Genitourinary: No Gastrointestinal: No Musculoskeletal: Yes (RIGHT FEMUR FX/ORIF-NATALIE) Endocrine: No HEENT: No Cancer: No Psychosocial: No Integumentary: No Blood Disorders: No Physical Exam Vital Signs Vital Signs - First Documented 08/16/22 08/16/22 19:30 20:54 Temp 38.4 Pulse 93 Resp 15 B/P (MAP) 121/78 (92) Pulse Ox 100 O2 Delivery Room Air Capillary Refill : Less Than 3 Seconds Height/Weight/BMI Height: 5'2.00" Weight: 130lbs. 0.0oz. [id number]; 21.00 BMI Method:Actual General Appearance: WD/WN, mild distress Neck: supple, normal inspection Respiratory: lungs clear, normal breath sounds, no respiratory distress, no accessory muscle use Cardiovascular: regular rate, rhythm Gastrointestinal: normal bowel sounds, soft, tenderness (Mild right-sided tenderness) Extremities: normal range of motion, normal inspection Back: No CVA tenderness (R); CVA tenderness (L) Neurologic/Psychiatric: alert, normal mood/affect Skin: normal color, warm/dry Focused Exam Lactate Level 08/16/22 19:59: Lactic Acid Level 1.87 Lactic Acid Level Laboratory Tests Test 08/16/22 19:59 Lactic Acid Level 1.87 MMOL/L (0.50-2.00) Procedures/Interventions Suture Size: 4-0 Progress/Results/Core Measures Results/Orders Lab Results Laboratory Tests Test 08/16/22 19:34 08/16/22 19:59 08/16/22 20:00 Range/Units White Blood Count 9.2 4.3-11.0 10^3/uL Red Blood Count 5.00 4.30-5.52 10^6/uL Hemoglobin 16.2 13.3-17.7 g/dL Hematocrit 47 40-54 % Mean Corpuscular Volume 94 80-99 fL Mean Corpuscular Hemoglobin 32 25-34 pg Mean Corpuscular Hemoglobin Concent 34 32-36 g/dL Red Cell Distribution Width 11.6 10.0-14.5 % Platelet Count 267 130-400 10^3/uL Mean Platelet Volume 9.1 9.0-12.2 fL Immature Granulocyte % (Auto) 0 % Neutrophils (%) (Auto) 85 H 42-75 % Lymphocytes (%) (Auto) 7 L 12-44 % Monocytes (%) (Auto) 6 0-12 % Eosinophils (%) (Auto) 1 0-10 % Basophils (%) (Auto) 1 0-10 % Neutrophils # (Auto) 7.8 1.8-7.8 10^3/uL Lymphocytes # (Auto) 0.7 L 1.0-4.0 10^3/uL Monocytes # (Auto) 0.6 0.0-1.0 10^3/uL Eosinophils # (Auto) 0.1 0.0-0.3 10^3/uL Basophils # (Auto) 0.1 0.0-0.1 10^3/uL Immature Granulocyte # (Auto) 0.0 0.0-0.1 10^3/uL Neutrophils % (Manual) 90 % Lymphocytes % (Manual) 7 % Monocytes % (Manual) 2 % Basophils % (Manual) 1 % Platelet Estimate NORMAL Blood Morphology Comment NORMAL Sodium Level 136 135-145 MMOL/L Potassium Level 3.8 3.6-5.0 MMOL/L Chloride Level 101 98-107 MMOL/L Carbon Dioxide Level 25 21-32 MMOL/L Anion Gap 10 5-14 MMOL/L Blood Urea Nitrogen 10 7-18 MG/DL Creatinine 1.11 0.60-1.30 MG/DL Estimat Glomerular Filtration Rate 93 BUN/Creatinine Ratio 9 Glucose Level 66 L 70-105 MG/DL Calcium Level 9.3 8.5-10.1 MG/DL Corrected Calcium 9.1 8.5-10.1 MG/DL Total Bilirubin 0.7 0.1-1.0 MG/DL Aspartate Amino Transf (AST/SGOT) 22 5-34 U/L Alanine Aminotransferase (ALT/SGPT) 32 0-55 U/L Alkaline Phosphatase 62 40-136 U/L C-Reactive Protein High Sensitivity 0.89 H 0.00-0.50 MG/DL Total Protein 7.1 6.4-8.2 GM/DL Albumin 4.3 3.2-4.5 GM/DL Amylase Level 34 25-125 U/L Lipase 26 8-78 U/L Lactic Acid Level 1.87 0.50-2.00 MMOL/L Urine Color YELLOW Urine Clarity CLEAR Urine pH 8.0 5-9 Urine Specific [place] 1.010 L 1.016-1.022 Urine Protein NEGATIVE NEGATIVE Urine Glucose (UA) NEGATIVE NEGATIVE Urine Ketones NEGATIVE NEGATIVE Urine Nitrite NEGATIVE NEGATIVE Urine Bilirubin NEGATIVE NEGATIVE Urine Urobilinogen 1.0 < = 1.0 MG/DL Urine Leukocyte Esterase NEGATIVE NEGATIVE Urine RBC (Auto) NEGATIVE NEGATIVE Urine RBC NONE /HPF Urine WBC NONE /HPF Urine Squamous Epithelial Cells NONE /HPF Urine Crystals PRESENT H /LPF Urine Amorphous Sediment RARE ROMELIA PHOSPHATE H /LPF Urine Bacteria NEGATIVE /HPF Urine Casts NONE /LPF Urine Mucus NEGATIVE /LPF Urine Culture Indicated NO My Orders Orders - EZNA MEYER APRN Comprehensive Metabolic Panel (08/16/22 19:26) Lipase (08/16/22:) Amylase (08/16/22:) Ua Culture If Indicated (08/16/22 19:26) Ed Iv/Invasive Line Start (08/16/22:) Cbc With Automated Diff (08/16/22:26) Ct Abdomen/Pelvis W (08/16/22 19:27) Iohexol Injection (Omnipaque 350 Mg/Ml 1 (08/16/22 19:45) Received Contrast (Hold Metformin- Contr (08/16/22 19:45) Ns (Ivpb) (Sodium Chloride 0.9% Ivpb Bag (08/16/22 19:45) Hs C Reactive Protein (08/16/22 19:39) Lactic Acid Analyzer (08/16/22 19:39) Fentanyl Inj (Sublimaze Injection) (08/16/22 19:45) Ondansetron Injection (Zofran Injectio (08/16/22 19:45) Ns Iv 1000 Ml (Sodium Chloride 0.9%) (08/16/22 19:45) Manual Differential (08/16/22 19:34) Medications Given in ED Vital Signs/I&O 08/16/22 08/16/22 19:30 20:54 Temp 38.4 38.1 Pulse 93 94 Resp 15 18 B/P (MAP) 121/78 (92) 134/76 Pulse Ox 100 O2 Delivery Room Air Room Air Blood Pressure Mean: 92 Progress Progress Note : Progress Note Patient seen and evaluated, resting in bed, mild distress. Based on exam and symptoms, work-up initiated including CBC, CMP, amylase, lipase, CRP, lactic acid, UA. IV fluids, fentanyl, Zofran ordered. Labs and CT reviewed. CBC shows normal WBC 9.2, elevated neutrophil percentage 85. CMP grossly normal, slightly decreased glucose 66. CRP 0.89. Lactic acid normal 1.87. Urinalysis negative for infection, negative for RBCs. CT shows probable jejunal enteritis, no other acute abnormalities. Results discussed with patient. Patient reports he is feeling better. Pain is likely due to enteritis, probably viral. Will discharge patient with instructions to maintain a clear liquid diet until symptoms improve. Discharge instructions and return precautions provided. Diagnostic Imaging Diagonstic Imaging: CT Plain Films/CT/US/NM/MRI: abdomen, pelvis Comments [facility], [place] NAME: USAMA WOLFE [facility] REC#: [id number] PT STATUS: DEP ER : 1995 PHYSICIAN: ZENA MEYER APRN ADMIT DATE: 08/16/22/ER Signed Date of Exam:08/16/22 CT ABDOMEN/PELVIS W PROCEDURE: CT abdomen and pelvis with contrast. TECHNIQUE: Multiple contiguous axial images were obtained through the abdomen and pelvis after administration of intravenous contrast. Auto Exposure Controls were utilized during the CT exam to meet ALARA standards for radiation dose reduction. All CT scans use one or more of the following dose optimizing techniques: automated exposure control, MA and/or KvP adjustment based on patient size and exam type or iterative reconstruction. INDICATION: Abdominal pain. COMPARISON: 03/21/2018. FINDINGS: Study is somewhat limited by motion. No focal hepatic, gallbladder, pancreatic, adrenal gland, splenic or renal abnormality is identified. There is, however, significant mural thickening of the jejunum. No proximal dilatation is seen to indicate obstruction. There is no free fluid in the abdomen or pelvis. No organized fluid collection is identified. There is no evidence of pneumoperitoneum. The appendix is not clearly identified. Unopacified bladder is unremarkable in appearance. IMPRESSION: Study limited by motion reveals probable jejunal enteritis and clinical correlation is recommended. No definite obstruction, perforation or abscess is detected. Dictated by: Dictated on workstation # [id number] Dict: 08/16/221958 Trans: 08/17/221711 MERGED WITH [facility] [id number] Interpreted by: ELADIO BAKER MD Electronically signed by: ELADIO BAKER MD 08/17/221711 Departure Impression Primary Impression: Enteritis Disposition: HOME, SELF-CARE Condition: Stable Departure-Patient Inst. Decision time for Depature: 20:45 Referrals: MALLORY MESSER MD (PCP/Family) Primary Care Physician Patient Instructions: Viral gastroenteritis in adults Add. Discharge Instructions: Follow a clear liquid diet until symptoms improve. You may then slowly start to eat again. Start with the BRAT diet: Bananas, rice, applesauce, toast Take Zofran as needed for nausea and vomiting, it can cause constipation, so only take when needed.. You may take Tylenol or ibuprofen as needed for pain and fever. Return if your fever is uncontrolled with Tylenol or ibuprofen, you have uncontrolled vomiting, recurrent diarrhea, severe pain, or any other new, concerning, or worsening symptoms. All discharge instructions reviewed with patient and/or family. Voiced understanding. Scripts Ondansetron (Ondansetron Odt) 4 Mg Tab.rapdis 4 MG SL Q4H PRN for NAUSEA/VOMITING, #10 TAB 0 Refills Prov: ZENA MEYER APRN 08/16/22 ZENA MEYER APRN August 16, 2022 19:45
[2022-08-16 19:56] LABS: BASOPHILS % (MANUAL) 1 %; LYMPHOCYTES % (MANUAL) 7 %; MONOCYTES % (MANUAL) 2 %; NEUTROPHILS % (MANUAL) 90 %; PLATELET ESTIMATE NORMAL; RBC MORPH NORMAL
[2022-08-16 19:59] LABS: ALBUMIN 4.3 GM/DL (3.2-4.5); BILIRUBIN,TOTAL 0.7 MG/DL (0.1-1.0); CALCIUM 9.3 MG/DL (8.5-10.1); CREATININE SERUM 1.11 MG/DL (0.60-1.30); POTASSIUM 3.8 MMOL/L (3.6-5.0); TOTAL PROTEIN 7.1 GM/DL (6.4-8.2)
--- NOTE | 2022-08-16 20:13 | Diagnostic Imaging Report ---
PROCEDURE: CT abdomen and pelvis with contrast. TECHNIQUE: Multiple contiguous axial images were obtained through the abdomen and pelvis after administration of intravenous contrast. Auto Exposure Controls were utilized during the CT exam to meet ALARA standards for radiation dose reduction. All CT scans use one or more of the following dose optimizing techniques: automated exposure control, MA and/or KvP adjustment based on patient size and exam type or iterative reconstruction. INDICATION: Abdominal pain. COMPARISON: 03/21/2018. FINDINGS: Study is somewhat limited by motion. No focal hepatic, gallbladder, pancreatic, adrenal gland, splenic or renal abnormality is identified. There is, however, significant mural thickening of the jejunum. No proximal dilatation is seen to indicate obstruction. There is no free fluid in the abdomen or pelvis. No organized fluid collection is identified. There is no evidence of pneumoperitoneum. The appendix is not clearly identified. Unopacified bladder is unremarkable in appearance. IMPRESSION: Study limited by motion reveals probable jejunal enteritis and clinical correlation is recommended. No definite obstruction, perforation or abscess is detected. Dictated by: Dictated on workstation # [id number]
[2022-08-16 20:15] LABS: BILIRUBIN,URINE NEGATIVE (NEGATIVE); CLARITY,URINE CLEAR; COLOR,URINE YELLOW; GLUCOSE, URINE (UA) NEGATIVE (NEGATIVE); KETONES,URINE NEGATIVE (NEGATIVE); LEUKOCYTE ESTERASE ,URINE NEGATIVE (NEGATIVE); NITRITE,URINE NEGATIVE (NEGATIVE); PROTEIN,URINE NEGATIVE (NEGATIVE)
[2022-08-16 20:24] LABS: BACTERIA,URINE NEGATIVE /HPF
[2022-08-16 20:25] LABS: AMORPHOUS SEDIMENT,UR RARE AMOR PHOSPHATE /LPF
[2022-08-16] MEDS ORDERED: ONDA4TAB11 SL (20:49)
[2022-08-16 20:54] VITALS: BP 134/76
== END 2022-08-16 20:54 | disposition home or self-care (01) ==
LOC: ER 19:24 → EDUNIT# 19:24 → ER 20:54
DX: K52.9 Noninfective gastroenteritis and colitis, unspecified (principal); F17.210 Nicotine dependence, cigarettes, uncomplicated; Z28.310 Unvaccinated for COVID-19
CPT/HCPCS: 36415; 74177; 80053; 81000; 82150; 83605; 83690; 85007; 85027; 86141